=== PATIENT | male | born 1980 | race Caucasian/White ===

== ENCOUNTER 2024-10-07 06:05 | Day surgery (SDC) | payer OTHER ==
[~2024-10-07] VITALS: Ht 180.3 cm; Wt 154.2 kg
[~2024-10-07 06:05] MED LIST: AMLO-751 PO; HYDR-3490 PO; LOSA100T46 PO; PHEN30CA21 PO; VITATAB26 PO
[2024-10-07] MEDS ORDERED: LR 1,000 ML IV SCH ×2 (06:20→09:55)
[2024-10-07] MEDS ORDERED: propofoL 200 MG/20 ML VIAL As Ordered ONE (06:49)
[2024-10-07] MEDS ORDERED: MIDAZOLAM INJ 2MG/2ML VIAL As Ordered ONE (06:49)
[2024-10-07] MEDS ORDERED: ROCURONIUM BROMIDE 50MG/5ML VIAL As Ordered ONE (06:49)
[2024-10-07] MEDS ORDERED: ONDANSETRON 4MG 2ML VIAL As Ordered ONE (06:49)
[2024-10-07] MEDS ORDERED: LIDOCAINE 2% 100MG/5ML SDV (FOR ANES.) As Ordered ONE (06:49)
[2024-10-07] MEDS ORDERED: ACETAMINOPHEN 1000MG/100ML IV BAG As Ordered ONE (06:49)
[2024-10-07] MEDS ORDERED: fentaNYL 100 MCG/2 ML INJECTION As Ordered ONE (06:49)
[2024-10-07] MEDS: CelecoXIB 400 MG CAP PO ONE (07:10)
[2024-10-07] MEDS ORDERED: GLUCAGON INJ 1MG VIAL SC PRN (07:25)
[2024-10-07] MEDS ORDERED: GLUCOSE 4 GM CHEW PO PRN (07:25)
[2024-10-07] MEDS ORDERED: DEXTROSE 50% 50ML SYRINGE IV PRN (07:25)
[2024-10-07] MEDS: INSULIN LISPRO (NovoLOG) PER UNIT SC PRN (07:32)
[2024-10-07] MEDS: ceFAZolin SOD 3 GM in DEXTROSE 5% (D5W) MINI-BAG PLU 1... IV ONE (07:38)
[2024-10-07] MEDS ORDERED: ESMOLOL INJ 100MG/10ML VIAL As Ordered ONE (07:49)
[2024-10-07] MEDS ORDERED: KETAMINE HCL 200MG/20ML VIAL As Ordered ONE (08:28)
[2024-10-07] MEDS ORDERED: KETOROLAC 30 MG/ML 1ML VIAL As Ordered ONE (08:28)
[2024-10-07] MEDS ORDERED: SUGAMMADEX SODIUM 500 MG/5 ML VIAL As Ordered ONE (08:28)
[2024-10-07] MEDS: LIDOCAINE 1% SDV 30ML VIAL As Ordered ONE (09:45)
[2024-10-07] MEDS: BUPivacaine LIPOSOME/PF 266MG 20ML VIAL (13.3MG/ML)(EXPAREL) As Ordered ONE (09:45)
[2024-10-07] MEDS ORDERED: ONDANSETRON 4MG 2ML VIAL IV PRN (09:55)
[2024-10-07] MEDS ORDERED: fentaNYL 100 MCG/2 ML INJECTION IV PRN (09:55)
[2024-10-07] MEDS: oxyCODONE 5MG TAB PO PRN (10:56)
[2024-10-07] MEDS: HYDROMORPHONE HCL 0.5 MG/ 0.5 ML SYRINGE IV PRN (10:57)
[2024-10-07 11:55] VITALS: BP 166/90; TEMP 97.2; O2SAT 95
== END 2024-10-07 12:25 | disposition home or self-care (01) ==
LOC: M SDC 06:05
PROVIDERS: ATTEND Surgery
DX: K42.0 Umbilical hernia with obstruction, without gangrene (principal); E66.01 Morbid (severe) obesity due to excess calories; Z68.42 Body mass index [BMI] 45.0-49.9, adult; R06.83 Snoring; I10 Essential (primary) hypertension; Z79.899 Other long term (current) drug therapy; Z87.891 Personal history of nicotine dependence
CPT/HCPCS: 49594; 64488; C1781; J0131; J0665; J0666; J0690; J1100; J1171; J1805; J1885; J2250; J2405; J3010